=== PATIENT | male | born 1985 | race Caucasian/White ===

== ENCOUNTER 2017-02-20 20:56 | Inpatient (IN) | payer OTHER ==
--- NOTE | 2017-02-20 20:59 | PDOC ---
Rapid Medical Evaluation Time Seen by Provider: 02/20/17 20:58 Medical Evaluation: Allergies Allergy/AdvReac Type Severity Reaction Status Date / Time No Known Allergies Allergy Verified 05/05/15 22:04 02/20/17 20:58 I have performed a brief in-person evaluation of this patient. The patient presents with a chief complaint of: upper mid abd pain since yesterday Pertinent physical exam findings: epigastric [pain I have ordered the following:maloxx 300 The patient will proceed to the ED for further evaluation:
[2017-02-20] MEDS ORDERED: MAG HYDROX/AL HYDROX/SIMETH 30 ML UNIT-DOSE CUP PO ONE (21:51)
[2017-02-20] MEDS ORDERED: RANITIDINE HCL 150 MG TABLET (FP) PO ONE (21:51)
[2017-02-20] MEDS ORDERED: ONDANSETRON 4 MG TABLET PO ONE (21:51)
[2017-02-20] MEDS ORDERED: ACETAMINOPHEN 500 MG TABLET (FP) PO ONE (21:51)
--- NOTE | 2017-02-20 21:51 | PDOC ---
History of Present Illness - General Chief Complaint: Pain, Acute Stated Complaint: ABD PAIN Time Seen by Provider: 02/20/17 20:58 - History of Present Illness Initial Comments: 02/20/17 21:37 32 yo M with no significant pmh who presents with mid-abdominal pain. Pt. reports onset of sharp shooting paroxysms of abdominal pain this AM from 0000- 0500 resolved with flatus. Pain returned following PO intake of "smoothie" around 1300 with worsening, sharp, shooting pains to mid abdomen. Denies triggers or alleviators. Patient states that symtpoms may be 2/2 "large meal " yesterday. States that pain has been debilitating and severe causing him to cry. Last BM was at 1400 normal stool consistency. Denies BRBPR. Denies N/V, fevers/chills, SOB, chest pain, dysuria, hematuria. Has attempted Mylanta oral suspension with no relief. No h/o GI illness. No recent GI sick contacts. No recent travels, camping, or hiking. Past History - Past Medical History Allergies/Adverse Reactions: Allergies Allergy/AdvReac Type Severity Reaction Status Date / Time No Known Allergies Allergy Verified 02/20/17 20:58 Home Medications: Ambulatory Orders Mag Hydrox/Al Hydrox/Simeth [Mylanta *Suspension*] 30 ml PO ONCE 02/20/17 COPD: No - Immunization History Immunization Up to Date: Yes - Suicide/Smoking/Psychosocial Hx Smoking History: Never smoked Have you smoked in the past 12 months: No Hx Alcohol Use: No Drug/Substance Use Hx: No Substance Use Type: None Review of Systems - Review of Systems Comments:: 02/20/17 21:38 GENERAL/CONSTITUTIONAL: No fever or chills. No weakness. HEAD, EYES, EARS, NOSE AND THROAT: No change in vision. No ear pain or discharge. No sore throat.- CARDIOVASCULAR: No chest pain or shortness of breath RESPIRATORY: No cough, wheezing, or hemoptysis. GASTROINTESTINAL: No nausea, vomiting, diarrhea or constipation. GENITOURINARY: + abdominal pain. No dysuria, frequency, or change in urination. MUSCULOSKELETAL: No joint or muscle swelling or pain. No neck or back pain. SKIN: No rash NEUROLOGIC: No headache, vertigo, loss of consciousness, or change in strength/ sensation. ENDOCRINE: No increased thirst. No abnormal weight change HEMATOLOGIC/LYMPHATIC: No anemia, easy bleeding, or history of blood clots. ALLERGIC/IMMUNOLOGIC: No hives or skin allergy. *Physical Exam - Vital Signs Last Vital Signs Temp Pulse Resp BP Pulse Ox 97.9 F 88 16 133/97 100 02/20/17 20:59 02/20/17 20:59 02/20/17 20:59 02/20/17 20:59 02/20/17 20:59 - Physical Exam Comments: 02/20/17 21:38 GENERAL: Awake, alert, and fully oriented, in no acute distress HEAD: No signs of trauma, normocephalic, atraumatic EYES: PERRLA, EOMI, sclera anicteric, conjunctiva clear ENT: Hearing grossly normal, nares patent, oropharynx clear without exudates. Moist mucosa NECK: Normal ROM, no JVD, or masses LUNGS: No distress, speaks full sentences, clear to auscultation bilaterally HEART: Regular rate and rhythm, normal S1 and S2, no murmurs, rubs or gallops, peripheral pulses normal and equal bilaterally. ABDOMEN: Soft, nontender, normoactive bowel sounds. No guarding, no rebound. No masses EXTREMITIES : Normal inspection, Normal range of motion, no edema. No clubbing or cyanosis. SKIN: Warm, Dry, normal turgor, no rashes or lesions noted. ED Treatment Course - LABORATORY CBC & Chemistry Diagram: 02/20/17 22:23 02/20/17 22:23 Medical Decision Making - Medical Decision Making 02/20/17 21:58 32 yo M with no significant pmh who presents with acute onset of sharp shooting paroxysms of abdominal pain this AM from [id number] resolved with flatus. Pain returned following PO intake at 1300 with worsening, sharp, shooting pains to mid abdomen. Last BM at 1400 normal stool consistency. Denies BRBPR, N/V, fevers /chills,SOB, dysuria, hematuria. Has attempted Mylanta oral suspension with no relief. No h/o GI illness. No recent GI sick contacts. No recent travels, camping, or hiking. Physical exam benign and hemodyanmically stable. There is low suspicion for emergent GI pathology given benign physical exam, absent abdominal ttp, and unremarkable history with lack of symptoms or risk factors. Although, unlikely it is regional to consider early appendicitis with potential for periumbilical migration vs. cholelithaisis/choleycystitis d/t spasmodic nature of pain. Less likely PUD, Mesenteric Ischemia. ED Course: 02/20/17 22:03 CBC,CMP, Lipase, UA Toradol IM 60 mg 02/20/17 22:12 02/20/17 23:52 14.1 WBC 02/20/17 23:56 RUQ U/S: Cholelithiasis, with probable choleycystitis. Gallbladder wall thickening 0.6 cm. 02/21/17 00:18 Will admit to obs/inpatient and consult surgery. *DC/Admit/Observation/Transfer Diagnosis at time of Disposition: Acute cholecystitis Abdominal pain Qualifiers: Abdominal location: periumbilical Qualified Code(s): R10.33 - Periumbilical pain - Discharge Dispostion Disposition: HOME Condition at time of disposition: Stable Admit: No - Referrals - Patient Instructions Printed Discharge Instructions: DI for Irritable Bowel Syndrome Additional Instructions: Please return to the emergency department with any new or worsening symptoms or concerns. - Post Discharge Activity - Attestations Physician Attestion: 02/20/17 23:58 I attest to the information provided in this note.
--- NOTE | 2017-02-20 22:05 | PDOC ---
Attending Attestation - Medical Decision Making 02/21/17 01:22 12:44am Call placed to Dr. Parsons, awaiting call back. 1:05am Call returned from Dr. Cowan, associate of Dr. Parsons. Case was discussed. Documentation prepared by Caitlin Craft, acting as medical device engineer for Delio Uriarte MD. <Caitlin Craft - Last Filed: 02/21/17 01:22> - Resident Resident Name: Jose Merason - ED Attending Attestation I have performed the following: I have examined & evaluated the patient, The case was reviewed & discussed with the resident, I agree w/resident's findings & plan, Exceptions are as noted - HPI HPI: 02/20/17 22:05 32y M no pmhx prsents with abdominal pain, worse in the mid abdomen, sharp shooting, intermittent, onest around midnight last night, last meal was at 7pm, bu tpt notes he had a teaspoon of coconut oil prior to going to bed. notes that he felt much better around 5am, got some sleep. when he got up he had a smoothie and pain started again. no associated cp, radiation of pain, fever/ chills, n/v, diarrhea, dysuyria, hematuria no prior episode of similar pain in th epast pts exam is unremnarkable with a soft abdomen no rebound/guarding, neg murphies no distress suspect gall stones consider ingidgestion - pt notes he had 10 jalepenos during dinner last night will ck labs, us of gb will give toradol, gi coctail - Physicial Exam PE: 02/21/17 03:36 see above - Medical Decision Making pts US suggestive of cholecystitis pt also had wbc of 14 clinically pt does not apper to have cholecystiits pt was written for ctx case dw dr. Cowan (surgery) agrees to see pt in am for assessment chandrika dw dr. munoz agree with observation under dr. Carballo service Case discussed in detail with admitting physician including history, physical exam and ancillary studies. Admitting physician has assumed care for the patient, will follow all pending diagnostics and will complete the evaluation and treatment. <Delio Uriarte - Last Filed: 02/21/17 03:37>
[2017-02-20] MEDS ORDERED: KETOROLAC TROMETHAMINE 60 MG/2 ML VIAL IM ONE (22:11)
[2017-02-20] MEDS ORDERED: KETOROLAC TROMETHAMINE 60 MG/2 ML VIAL ONE (22:12)
[2017-02-20 23:10] LABS: ALBUMIN 4.5 g/dl (3.4-5.0); ANION GAP 8 (8-16); CO2 26 mmol/L (21-32); CREATININE 0.7 mg/dL (0.7-1.3); GLUCOSE,RANDOM 89 mg/dL (74-106); SGOT/AST 13 U/L (15-37); SGPT/ALT 31 U/L (12-78)
[2017-02-20 23:12] LABS: ALK PHOS 107 U/L (45-117); BASOPHIL 0.2 % (0-2.0); BILIRUBIN,TOTAL 0.6 mg/dL (0.2-1.0); EOSINOPHIL 0.2 % (0-4.5); MCH 27.1 pg (25.7-33.7); MEAN CELL VOLUME 79.9 fl (80-96); MEAN PLT VOLUME 10.3 fl (7.5-11.1); NEUTROPHILS 77.3 % (42.8-82.8); PLATELET COUNT 172 K/MM3 (134-434); RDW 13.1 % (11.9-15.9); TOT PROT 8.1 g/dl (6.4-8.2); WHITE BLOOD COUNT 14.1 K/mm3 (4.0-10.0)
[2017-02-21] MEDS ORDERED: CEFTRIAXONE 1 GM/50 ML BAG ONE (00:36)
[2017-02-21] MEDS ORDERED: cefTRIAXone 1 GM/50 ML BAG (PRE-DOCKED) IVPB ONE (00:45)
[2017-02-21 01:23] LABS: URINE APPEARANCE CLEAR; URINE BILIRUBIN NEGATIVE (NEGATIVE); URINE BLOOD NEGATIVE (NEGATIVE); URINE COLOR LTYELLOW; URINE GLUCOSE (UA) NEGATIVE (NEGATIVE); URINE KETONE 1+ (NEGATIVE); URINE NITRITE NEGATIVE (NEGATIVE); URINE PROTEIN NEGATIVE (NEGATIVE); URINE UROBILINOGEN NEGATIVE mg/dL (0.2-1.0)
--- NOTE | 2017-02-21 01:38 | HP ---
CHIEF COMPLAINT: abdominal pain PCP: none HISTORY OF PRESENT ILLNESS: 32 yr old man man with no significant past medical hx presented the ED for sudden intractable intermittent "bloated/pressure-like" nonradiating epigastric pain. started at 12am on Thursday, was intermittent in the beginning, 7/10 at the height, prevented him sleeping, nonpositional, no allieviating or exacerbating factors. the pain stopped at 5am and he was able to sleep. at 11am he made a smoothie with bananas, blueberries, strawberries and cashew milk, at 1pm the same abdominal pain returned but this time it was continuous and progressively worsened until he came to the ED. 1 dose of mylanta at home did not provide any relief. he also tried prune juice and water which made the abdominal pain worse. He denies any n/v/diarrhea/constipation/headache. the only new item to his diet was several slices of jalapenos pickles, store- bought. recently turned vegan in the past 2-3 months. ER course was notable for: (1) abdominal u/s (2) consult placed to Dr. Cowan - surgery (3) Recent Travel: [place] time in the last few months PAST MEDICAL HISTORY: denies medical hx, denies previous episodes of similar pain PAST SURGICAL HISTORY: denies Social History: Smoking: denies Alcohol:denies Drugs: denies Family History: maternal uncle due to colon cancer at age 66. Allergies No Known Allergies Allergy (Verified 02/20/17 20:58) HOME MEDICATIONS: Home Medications Medication Instructions Recorded Mag Hydrox/Al Hydrox/Simeth 30 ml PO ONCE 02/20/17 [Mylanta *Suspension*] REVIEW OF SYSTEMS CONSTITUTIONAL: Present: intentional weight loss 10-20lbs in past 4 months Absent: fever, chills, diaphoresis, generalized weakness, malaise, loss of appetite HEENT: Absent: rhinorrhea, nasal congestion, throat pain, throat swelling, difficulty swallowing, mouth swelling, eye pain, visual changes CARDIOVASCULAR: Absent: chest pain, syncope, palpitations, irregular heart rate, lightheadedness , peripheral edema RESPIRATORY: Absent: cough, shortness of breath, dyspnea with exertion, orthopnea, wheezing, stridor, hemoptysis GASTROINTESTINAL: Present: abdominal pain, Absent: abdominal distension, nausea, vomiting, diarrhea, constipation, melena , hematochezia GENITOURINARY: Absent: dysuria, frequency, urgency, hesitancy, hematuria, flank pain, genital pain MUSCULOSKELETAL: Absent: myalgia, arthralgia, joint swelling, back pain, neck pain SKIN: Absent: rash, itching, pallor HEMATOLOGIC/IMMUNOLOGIC: Absent: easy bleeding, easy bruising, lymphadenopathy, frequent infections ENDOCRINE: Absent: unexplained weight gain, unexplained weight loss, heat intolerance, cold intolerance NEUROLOGIC: Absent: headache, focal weakness or paresthesias, dizziness, unsteady gait, seizure, mental status changes, bladder or bowel incontinence PHYSICAL EXAMINATION Vital Signs - 24 hr 02/20/17 20:59 Temperature 97.9 F Pulse Rate 88 Respiratory 16 Rate Blood Pressure 133/97 O2 Sat by Pulse 100 Oximetry (%) GENERAL: Awake, alert, and fully oriented, in no acute distress. HEAD: Normal with no signs of trauma. EYES: Pupils equal, round and reactive to light, extraocular movements intact, sclera anicteric, conjunctiva clear. No lid lag. EARS, NOSE, THROAT: Ears normal, nares patent, oropharynx clear without exudates. Moist mucous membranes. NECK: Normal range of motion, supple without lymphadenopathy, JVD, or masses. LUNGS: Breath sounds equal, clear to auscultation bilaterally. No wheezes, and no crackles. No accessory muscle use. HEART: Regular rate and rhythm, normal S1 and S2 without murmur, rub or gallop. ABDOMEN: Soft, nontender, not distended, normoactive bowel sounds, no guarding, no rebound, no masses. No hepatomegaly or splenomegaly. MUSCULOSKELETAL: Normal range of motion at all joints. No bony deformities or tenderness. No CVA tenderness. UPPER EXTREMITIES: 2+ radial pulses, warm, well-perfused. No cyanosis. No clubbing. No peripheral edema. LOWER EXTREMITIES: 2+ dp pulses, warm, well-perfused. No calf tenderness. No peripheral edema. NEUROLOGICAL: Cranial nerves II-XII intact. Normal speech. Normal gait. 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 Good eye contact. Appropriate mood and affect. SKIN: Warm, dry, normal turgor, no rashes or lesions noted, normal capillary refill. Laboratory Results - last 24 hr 02/20/17 02/20/1717 22:23 22:23 22:23 WBC 14.1 H D RBC 5.44 D Hgb 14.8 D Hct 43.5 D MCV 79.9 L MCH 27.1 MCHC 34.0 RDW 13.1 Plt Count 172 MPV 10.3 D Neutrophils % 77.3 D Lymphocytes % 15.1 D Monocytes % 7.2 Eosinophils % 0.2 Basophils % 0.2 Sodium 137 Potassium 3.6 Chloride 103 D Carbon Dioxide 26 Anion Gap 8 BUN 4 L D Creatinine 0.7 D Creat Clearance w eGFR > 60 Random Glucose 89 Calcium 9.0 Total Bilirubin 0.6 D AST 13 L D ALT 31 D Alkaline Phosphatase 107 D Total Protein 8.1 Albumin 4.5 Lipase 83 Urine Color Urine Appearance Urine pH Ur Specific [place] Urine Protein Urine Glucose (UA) Urine Ketones Urine Blood Urine Nitrite Urine Bilirubin Urine Urobilinogen 02/21/17 00:47 WBC RBC Hgb Hct MCV MCH MCHC RDW Plt Count MPV Neutrophils % Lymphocytes % Monocytes % Eosinophils % Basophils % Sodium Potassium Chloride Carbon Dioxide Anion Gap BUN Creatinine Creat Clearance w eGFR Random Glucose Calcium Total Bilirubin AST ALT Alkaline Phosphatase Total Protein Albumin Lipase Urine Color Ltyellow Urine Appearance Clear Urine pH 7.0 D Ur Specific [place] 1.008 Urine Protein Negative Urine Glucose (UA) Negative Urine Ketones 1+ H Urine Blood Negative Urine Nitrite Negative Urine Bilirubin Negative Urine Urobilinogen Negative ASSESSMENT/PLAN: 32 yr old man with no significant pmhx presents with abdominal found to have possible acute cholecystitis on u/s placed on observation for further evaluation. #Abdominal pain - could be from passing gallstones see on u/s, although barnes' s sign negative, and he has a benign abdominal exam - consulted for surgical evaluation - repeat labs in the am #Leucocytosis - 1 dose of rocephin given in ICU, 1gm rocephin in the AM today - repeat labs #Diet: advance as tolerated #dvt: low risk, anticipate short stay #Dispo: will need referral for outpatient PCP and likely GI f/u if not further intervention is required Visit type - Emergency Visit Emergency Visit: Yes ED Registration Date: 02/21/17 Care time: The patient presented to the Emergency Department on the above date and was hospitalized for further evaluation of their emergent condition. - New Patient This patient is new to me today: Yes Date on this admission: 02/21/17 - Critical Care Critical Care patient: No
[2017-02-21] MEDS ORDERED: SODIUM CHLORIDE 1,000 ML IV SCH (01:45)
[2017-02-21 03:00] VITALS: BMI 23.0
--- NOTE | 2017-02-21 03:27 | CONSULT ---
Consult Consult Specialty:: general surgery Referred by:: Fernandez Mera - ED Reason for Consultation:: Abdominal Pain - History of Present Illness Chief Complaint: abdominal pain History of Present Illness: 32 yo male no dignificnat PMH or PSH presented to the ED complaining of abdominal pain, worse in the mid abdomen, sharp shooting, intermittent, onest around midnight last night, last meal was at 7pm. the pain was closely related to meal time. His previous diet was poor including fast food and saturated fat. He recently changed and in a effort improve had a teaspoon of coconut oil prior to going to bed. He has been a vegan for 4 months. notes that he felt much better around 5am, got some sleep. Later in the day he had a smoothie and pain started again. he denies nausea and vomiting. we were asked to assess for surgery. - History Source History Provided By: Patient Limitations to Obtaining History: No Limitations - Alcohol/Substance Use Hx Alcohol Use: No - Smoking History Smoking history: Never smoked Have you smoked in the past 12 months: No - Social History Place of : [facility] History of Recent Travel: No Home Medications - Allergies Allergies/Adverse Reactions: Allergies Allergy/AdvReac Type Severity Reaction Status Date / Time No Known Allergies Allergy Verified 02/20/17 20:58 - Home Medications Home Medications: Ambulatory Orders Mag Hydrox/Al Hydrox/Simeth [Mylanta *Suspension*] 30 ml PO ONCE 02/20/17 Review of Systems - Review of Systems Constitutional: denies: Chills, Fever Eyes: denies: Blurred Vision, Recent Change in Vision Cardiovascular: denies: Chest Pain, Palpitations Respiratory: denies: Cough, SOB Gastrointestinal: reports: Abdominal Pain, Bloating Musculoskeletal: denies: Joint Pain, Joint Swelling Integumentary: denies: Lesions, Rash Neurological: denies: Confusion, Syncope Endocrine: denies: Unexplained Weight Gain, Unexplained Weight Loss Hematology/Lymphatic: denies: Easily Bruised, Excessive Bleeding Psychiatric: denies: Anxiety, Depression Physical Exam Vital Signs: Vital Signs Temperature 97.8 F 02/21/17 00:50 Pulse Rate 59 L 02/21/17 00:50 Respiratory Rate 20 02/21/17 03:14 Blood Pressure 120/72 02/21/17 00:50 O2 Sat by Pulse Oximetry (%) 100 02/20/17 20:59 Vital Signs Period Temp Pulse Resp BP Sys/Sky Pulse Ox Last 24 Hr 97.8 F-98.0 F 59-88 16-20 109-133/63-97 100 Constitutional: Yes: Well Nourished, No Distress, Calm Eyes: Yes: Conjunctiva Clear, EOM Intact HENT: Yes: Atraumatic, Normocephalic Neck: Yes: Supple, Trachea Midline Cardiovascular: Yes: Regular Rate and Rhythm, S1, S2. No: Murmur Respiratory: Yes: Regular, CTA Bilaterally Gastrointestinal: Yes: Normal Bowel Sounds, Soft, Tenderness (minimal right upper quadrant). No: Ascites, Distention, Hepatomegaly, Tenderness, Rebound ...Rectal Exam: Yes: Deferred Renal/: No: CVA Tenderness - Left, CVA Tenderness - Right Extremities: No: Cool, Cyanosis Edema: No Peripheral Pulses WNL: Yes Neurological: Yes: Alert, Oriented Psychiatric: Yes: Alert, Oriented Labs: CBC, BMP 02/20/17 22:23 02/20/17 22:23 Repeat CBC,CMP WBC 9.1 K/mm3 (4.0-10.0) D 02/21/17 06:00 RBC 4.91 M/mm3 (4.00-5.60) 02/21/17 06:00 Hgb 13.1 GM/dL (11.7-16.9) D 02/21/17 06:00 Hct 39.4 % (35.4-49) 02/21/17 06:00 MCV 80.3 fl (80-96) 02/21/17 06:00 MCH 26.7 pg (25.7-33.7) 02/21/17 06:00 MCHC 33.3 g/dl (32.0-35.9) 02/21/17 06:00 RDW 12.9 % (11.9-15.9) 02/21/17 06:00 Plt Count 151 K/MM3 (134-434) 02/21/17 06:00 MPV 10.1 fl (7.5-11.1) 02/21/17 06:00 Neutrophils % 49.2 % (42.8-82.8) D 02/21/17 06:00 Lymphocytes % 37.4 % (8-40) D 02/21/17 06:00 Monocytes % 11.9 % (3.8-10.2) H 02/21/17 06:00 Eosinophils % 1.0 % (0-4.5) D 02/21/17 06:00 Basophils % 0.5 % (0-2.0) 02/21/17 06:00 Sodium 137 mmol/L (136-145) 02/20/17 22:23 Potassium 3.6 mmol/L (3.5-5.1) 02/20/17 22:23 Chloride 103 mmol/L (98-107) D 02/20/17 22:23 Carbon Dioxide 26 mmol/L (21-32) 02/20/17 22:23 Anion Gap 8 (8-16) 02/20/17 22:23 BUN 4 mg/dL (7-18) L D 02/20/17 22:23 Creatinine 0.7 mg/dL (0.7-1.3) D 02/20/17 22:23 Creat Clearance w eGFR > 60 (>60) 02/20/17 22:23 Random Glucose 89 mg/dL (74-106) 02/20/17 22:23 Calcium 9.0 mg/dL (8.5-10.1) 02/20/17 22:23 Total Bilirubin 0.6 mg/dL (0.2-1.0) D 02/20/17 22:23 AST 13 U/L (15-37) L D 02/20/17 22:23 ALT 31 U/L (12-78) D 02/20/17 22:23 Alkaline Phosphatase 107 U/L (45-117) D 02/20/17 22:23 Total Protein 8.1 g/dl (6.4-8.2) 02/20/17 22:23 Albumin 4.5 g/dl (3.4-5.0) 02/20/17 22:23 Lipase 83 U/L (73-393) 02/20/17 22:23 Imaging - Results Ultrasound: Image Reviewed (cholelithiasis with milid GB wall thickening) Problem List - Problems (1) Cholelithiasis and cholecystitis without obstruction Assessment/Plan: 32 yo male with no significant PMH presented with Acute cholecystitis/ symptomatic cholelithiasis NPO and IVF hydration empiric IV antibiotics had a long conversation recommending surgery however the patient prefers to be treated non-operatively consider gradually refeeding tonight for dinner with clears he was counseled regarding diet and provided with contact information should his mind change Thank you for the opportunity to participate in the care of this patient. Code(s): K80.10 - CALCULUS OF GALLBLADDER W CHRONIC CHOLECYST W/O OBSTRUCTION Qualifiers: Cholelithiasis location: gallbladder Cholecystitis acuity: acute Qualified Code(s): K80.00 - Calculus of gallbladder with acute cholecystitis without obstruction (2) Abdominal pain Code(s): R10.9 - UNSPECIFIED ABDOMINAL PAIN Qualifiers: Abdominal location: right upper quadrant Qualified Code(s): R10.11 - Right upper quadrant pain (3) Acute cholecystitis Code(s): K81.0 - ACUTE CHOLECYSTITIS (4) Diarrhea Code(s): R19.7 - DIARRHEA, UNSPECIFIED
[2017-02-21] MEDS: LACTATED RINGERS SOLUTION 1,000 ML/1,000 ML INFUS.BAG IV SCH ×2 (04:30→17:32)
--- NOTE | 2017-02-21 06:32 | PN ---
Teaching Attending Note Name of Resident: Felisa Lr ATTENDING PHYSICIAN STATEMENT I saw and evaluated the patient. I reviewed the resident's note and discussed the case with the resident. I agree with the resident's findings and plan as documented. SUBJECTIVE: OBJECTIVE: ASSESSMENT AND PLAN: this is a 32 y/o male patient without any PMH presented to the ER with abdominal pain and regurgitation, patient was found to have inflammation within the gallbladder patient is admitted for the management of pain, for choledolithiaisis vs acute cholecystitis start the patient on broad spectrum antibiots surgery evaluation IVF hydration keep patient NPO pain managment
[2017-02-21] MEDS ORDERED: CEFTRIAXONE 1 G/50 ML PREMIX 50 ML IVPB ONE (06:39)
[2017-02-21 07:23] LABS: BASOPHIL 0.5 % (0-2.0); MCH 26.7 pg (25.7-33.7); MCHC 33.3 g/dl (32.0-35.9); MEAN CELL VOLUME 80.3 fl (80-96); MEAN PLT VOLUME 10.1 fl (7.5-11.1); NEUTROPHILS 49.2 % (42.8-82.8); PLATELET COUNT 151 K/MM3 (134-434); RDW 12.9 % (11.9-15.9); WHITE BLOOD COUNT 9.1 K/mm3 (4.0-10.0)
[2017-02-21] MEDS: METRONIDAZOLE 500 MG PREMIXED 500 MG/100 ML MG IVPB SCH ×2 (08:22→17:32)
[2017-02-21 09:06] LABS: ALBUMIN 3.5 g/dl (3.4-5.0); ALK PHOS 93 U/L (45-117); ANION GAP 8 (8-16); CALCIUM 8.2 mg/dL (8.5-10.1); CO2 25 mmol/L (21-32); CREATININE 0.6 mg/dL (0.7-1.3); GLUCOSE,RANDOM 82 mg/dL (74-106); SGOT/AST 13 U/L (15-37); SGPT/ALT 25 U/L (12-78); TOT PROT 6.4 g/dl (6.4-8.2)
--- NOTE | 2017-02-21 09:19 | HOSP ---
Physical Examination Vital Signs: Vital Signs Temperature 98.0 F 02/21/17 07:25 Pulse Rate 64 02/21/17 07:25 Respiratory Rate 20 02/21/17 07:25 Blood Pressure 109/63 02/21/17 07:25 O2 Sat by Pulse Oximetry (%) 100 02/20/17 20:59 Findings/Remarks: Subjective: The patient was seen and examined at the bedside, he states he is feeling better today and denies any abdominal pain. Evaluated by surgery, patient is refusing at this time Remains NPO Current Medications Generic Name Dose Route Start Last Admin Trade Name Freq PRN Reason Stop Dose Admin Lactated Ringer's 1,000 ml in 1,000 mls @ 100 mls/hr 02/21/17 03:45 02/21/17 04:30 Lactated Ringers Solution IV 100 mls/hr ASDIR NUNU Administration Metronidazole 500 mg in 100 mls @ 100 mls/hr 02/21/17 08:00 02/21/17 08:22 Flagyl 500mg Premixed Ivpb - IVPB 100 mls/hr Q8H-IV NUNU Administration Objective: Vital Signs Period Temp Pulse Resp BP Sys/Sky Pulse Ox Last 24 Hr 97.8 F-98.0 F 59-88 16-20 109-133/63-97 100 Physical Exam: General: NAD, A&Ox3 Lungs: CTA bilaterally Heart: RRR, S1S2 Abd: Soft, non-tender, non-distended. Normoactive bowel sounds Ext: Warm, well-perfused. 2+ DP/PT bilaterally Neuro: CN 2-12 intact CBCD WBC 9.1 K/mm3 (4.0-10.0) D 02/21/17 06:00 RBC 4.91 M/mm3 (4.00-5.60) 02/21/17 06:00 Hgb 13.1 GM/dL (11.7-16.9) D 02/21/17 06:00 Hct 39.4 % (35.4-49) 02/21/17 06:00 MCV 80.3 fl (80-96) 02/21/17 06:00 MCHC 33.3 g/dl (32.0-35.9) 02/21/17 06:00 RDW 12.9 % (11.9-15.9) 02/21/17 06:00 Plt Count 151 K/MM3 (134-434) 02/21/17 06:00 MPV 10.1 fl (7.5-11.1) 02/21/17 06:00 CMP Sodium 137 mmol/L (136-145) 02/20/17 22:23 Potassium 3.6 mmol/L (3.5-5.1) 02/20/17 22:23 Chloride 103 mmol/L (98-107) D 02/20/17 22:23 Carbon Dioxide 26 mmol/L (21-32) 02/20/17 22:23 Anion Gap 8 (8-16) 02/20/17 22:23 BUN 4 mg/dL (7-18) L D 02/20/17 22:23 Creatinine 0.7 mg/dL (0.7-1.3) D 02/20/17 22:23 Creat Clearance w eGFR > 60 (>60) 02/20/17 22:23 Random Glucose 89 mg/dL (74-106) 02/20/17 22:23 Calcium 9.0 mg/dL (8.5-10.1) 02/20/17 22:23 Total Bilirubin 0.6 mg/dL (0.2-1.0) D 02/20/17 22:23 AST 13 U/L (15-37) L D 02/20/17 22:23 ALT 31 U/L (12-78) D 02/20/17 22:23 Alkaline Phosphatase 107 U/L (45-117) D 02/20/17 22:23 Total Protein 8.1 g/dl (6.4-8.2) 02/20/17 22:23 Albumin 4.5 g/dl (3.4-5.0) 02/20/17 22:23 Assessment: This is a 32 year old male with no significant PMHx who presented to the ED with abdominal pain and was found to have cholelithiasis with acute cholecystitis Plan: 1) GI: Acute cholecystitis with cholelithiasis - NPO - IVF - Continue empiric Ceftriaxone and Flagyl - Patient refusing surgery at this time - Possibly start on clears tonight per surgery - Appreciate surgical consult 2) F/E/N: - Monitor electroytes - NPO, advance per surgery 3) Prophylaxis: - OOB ambulating - Heparin 5,000u sq tid 4) Dispo: - Requires continued inpatient care CODE STATUS: FULL CODE Labs: CBC, BMP 02/21/17 06:00
[2017-02-21] MEDS: HEPARIN NA (PORCINE) 5,000 UNITS/ML 1ML VIAL SQ SCH ×3 (11:06→21:28)
[2017-02-21 11:59] LABS: URINE LEUK ESTERASE Negative (NEGATIVE)
--- NOTE | 2017-02-21 12:12 | PN ---
Progress Note (short form) - Note Progress Note: This is likely biliary colic and because he feels much improved we can start clears as tolerated. Problem List - Problems (1) Cholelithiasis and cholecystitis without obstruction Code(s): K80.10 - CALCULUS OF GALLBLADDER W CHRONIC CHOLECYST W/O OBSTRUCTION Qualifiers: Cholelithiasis location: gallbladder Cholecystitis acuity: acute Qualified Code(s): K80.00 - Calculus of gallbladder with acute cholecystitis without obstruction (2) Abdominal pain Code(s): R10.9 - UNSPECIFIED ABDOMINAL PAIN Qualifiers: Abdominal location: right upper quadrant Qualified Code(s): R10.11 - Right upper quadrant pain (3) Acute cholecystitis Code(s): K81.0 - ACUTE CHOLECYSTITIS (4) Diarrhea Code(s): R19.7 - DIARRHEA, UNSPECIFIED
[2017-02-22] MEDS: METRONIDAZOLE 500 MG PREMIXED 500 MG/100 ML MG IVPB SCH ×3 (01:48→17:41)
[2017-02-22] MEDS: LACTATED RINGERS SOLUTION 1,000 ML/1,000 ML INFUS.BAG IV SCH ×2 (04:49→17:42)
[2017-02-22] MEDS: HEPARIN NA (PORCINE) 5,000 UNITS/ML 1ML VIAL SQ SCH ×3 (05:11→21:17)
[2017-02-22 07:47] LABS: MCH 27.2 pg (25.7-33.7); MCHC 33.7 g/dl (32.0-35.9); MEAN CELL VOLUME 80.5 fl (80-96); PLATELET COUNT 153 K/MM3 (134-434); RDW 13.2 % (11.9-15.9); WHITE BLOOD COUNT 10.5 K/mm3 (4.0-10.0)
[2017-02-22 08:42] LABS: ALBUMIN 3.6 g/dl (3.4-5.0); ALK PHOS 96 U/L (45-117); ANION GAP 7 (8-16); CALCIUM 8.5 mg/dL (8.5-10.1); CO2 26 mmol/L (21-32); CREATININE 0.7 mg/dL (0.7-1.3); GLUCOSE,RANDOM 91 mg/dL (74-106); SGOT/AST 12 U/L (15-37); SGPT/ALT 25 U/L (12-78); TOT PROT 6.6 g/dl (6.4-8.2)
[2017-02-22] MEDS: CEFTRIAXONE 1 G/50 ML PREMIX 50 ML IVPB SCH (09:54)
[2017-02-22] MEDS ORDERED: LEVOFLOXACIN 500 MG IVPB 500 MG/100 ML BAG IVPB SCH (10:00)
--- NOTE | 2017-02-22 10:00 | PN ---
Progress Note (short form) - Note Progress Note: Subjective: The patient was seen and examined at the bedside, he states he is hungry and would like to eat more than clear liquids He reports two episodes of loose stool yesterday afternoon No abdominal pain or nausea with clear liquid diet, will advance to full liquid at lunch Current Medications Generic Name Dose Route Start Last Admin Trade Name Hemal PRN Reason Stop Dose Admin Heparin Sodium (Porcine) 5,000 unit 02/21/17 09:45 02/22/17 05:11 Heparin - SQ Not Given TID NUNU Lactated Ringer's 1,000 ml in 1,000 mls @ 100 mls/hr 02/21/17 03:45 02/22/17 04:49 Lactated Ringers Solution IV 100 mls/hr ASDIR NUNU Administration Metronidazole 500 mg in 100 mls @ 100 mls/hr 02/21/17 08:00 02/22/17 01:48 Flagyl 500mg Premixed Ivpb - IVPB 100 mls/hr Q8H-IV NUNU Administration CEFTRIAXONE 1 G/50 ML PREMIX 50 mls @ 100 mls/hr 02/22/17 10:00 02/22/17 09: 54 Ceftriaxone 1 Gm-D5w Bag IVPB 100 mls/hr DAILY NUNU Administration Objective: Vital Signs Period Temp Pulse Resp BP Sys/Sky Pulse Ox Last 24 Hr 97.9 F-98.2 F 57-62 20-20 110-121/62-86 96-97 Physical Exam: General: NAD, A&Ox3 Lungs: CTA bilaterally Heart: RRR, S1S2 Abd: Soft, non-tender, non-distended. Normoactive bowel sounds Ext: Warm, well-perfused. 2+ DP/PT bilaterally Neuro: CN 2-12 intact CBCD WBC 10.5 K/mm3 (4.0-10.0) H 02/22/17 06:20 RBC 4.89 M/mm3 (4.00-5.60) 02/22/17 06:20 Hgb 13.3 GM/dL (11.7-16.9) 02/22/17 06:20 Hct 39.4 % (35.4-49) 02/22/17 06:20 MCV 80.5 fl (80-96) 02/22/17 06:20 MCHC 33.7 g/dl (32.0-35.9) 02/22/17 06:20 RDW 13.2 % (11.9-15.9) 02/22/17 06:20 Plt Count 153 K/MM3 (134-434) 02/22/17 06:20 MPV 10.0 fl (7.5-11.1) 02/22/17 06:20 CMP Sodium 140 mmol/L (136-145) 02/22/17 06:20 Potassium 3.7 mmol/L (3.5-5.1) 02/22/17 06:20 Chloride 107 mmol/L (98-107) 02/22/17 06:20 Carbon Dioxide 26 mmol/L (21-32) 02/22/17 06:20 Anion Gap 7 (8-16) L 02/22/17 06:20 BUN 5 mg/dL (7-18) L D 02/22/17 06:20 Creatinine 0.7 mg/dL (0.7-1.3) 02/22/17 06:20 Creat Clearance w eGFR > 60 (>60) 02/22/17 06:20 Random Glucose 91 mg/dL (74-106) 02/22/17 06:20 Calcium 8.5 mg/dL (8.5-10.1) 02/22/17 06:20 Total Bilirubin 1.0 mg/dL (0.2-1.0) 02/22/17 06:20 AST 12 U/L (15-37) L 02/22/17 06:20 ALT 25 U/L (12-78) 02/22/17 06:20 Alkaline Phosphatase 96 U/L (45-117) 02/22/17 06:20 Total Protein 6.6 g/dl (6.4-8.2) 02/22/17 06:20 Albumin 3.6 g/dl (3.4-5.0) 02/22/17 06:20 Assessment: This is a 32 year old male with no significant PMHx who presented to the ED with abdominal pain and was found to have cholelithiasis with acute cholecystitis Plan: 1) GI: Acute cholecystitis with cholelithiasis - Tolerated clear liquid diet, advance to full liquid for lunch - IVF, will discontinued - Continue empiric Ceftriaxone and Flagyl - Patient refusing surgery at this time - Appreciate surgical consult 2) F/E/N: - Monitor electroytes - Full liquid diet for lunch, advance as tolerated 3) Prophylaxis: - OOB ambulating - Heparin 5,000u sq tid 4) Dispo: - Requires continued inpatient care CODE STATUS: FULL CODE Visit type - Emergency Visit Emergency Visit: Yes ED Registration Date: 02/21/17 Care time: The patient presented to the Emergency Department on the above date and was hospitalized for further evaluation of their emergent condition. - New Patient This patient is new to me today: No - Critical Care Critical Care patient: No
--- NOTE | 2017-02-22 12:11 | PN ---
Progress Note (short form) - Note Progress Note: Patient was seen and examined this morning, his mother was present at the bedside. This is likely biliary colic and because he feels much improved he is note interested in surgery at this time. His diet can be advanced to vegan regular, if tolerating he can be discharged at the discretion of the primary team. He has been provided with information to follow-up for elective cholecystectomy should he change his mind Problem List - Problems (1) Cholelithiasis and cholecystitis without obstruction Code(s): K80.10 - CALCULUS OF GALLBLADDER W CHRONIC CHOLECYST W/O OBSTRUCTION Qualifiers: Cholelithiasis location: gallbladder Cholecystitis acuity: acute Qualified Code(s): K80.00 - Calculus of gallbladder with acute cholecystitis without obstruction (2) Abdominal pain Code(s): R10.9 - UNSPECIFIED ABDOMINAL PAIN Qualifiers: Abdominal location: right upper quadrant Qualified Code(s): R10.11 - Right upper quadrant pain (3) Acute cholecystitis Code(s): K81.0 - ACUTE CHOLECYSTITIS (4) Diarrhea Code(s): R19.7 - DIARRHEA, UNSPECIFIED
[2017-02-22] MEDS ORDERED: ONDANSETRON 4 MG/2 ML VIAL IVPUSH ONE (20:15)
[2017-02-22] MEDS: ACETAMINOPHEN 325 MG TABLET (FP) PO PRN (20:31)
[2017-02-22 21:07] LABS: BASOPHIL 1.4 % (0-2.0); MCH 27.4 pg (25.7-33.7); MCHC 34.4 g/dl (32.0-35.9); MEAN CELL VOLUME 79.6 fl (80-96); MEAN PLT VOLUME 9.7 fl (7.5-11.1); NEUTROPHILS 90.3 % (42.8-82.8); PLATELET COUNT 158 K/MM3 (134-434); RDW 12.6 % (11.9-15.9); WHITE BLOOD COUNT 10.1 K/mm3 (4.0-10.0)
[2017-02-23] MEDS: METRONIDAZOLE 500 MG PREMIXED 500 MG/100 ML MG IVPB SCH ×3 (02:46→18:37)
[2017-02-23] MEDS: LACTATED RINGERS SOLUTION 1,000 ML/1,000 ML INFUS.BAG IV SCH ×2 (02:47→15:45)
[2017-02-23] MEDS: HEPARIN NA (PORCINE) 5,000 UNITS/ML 1ML VIAL SQ SCH ×3 (05:52→21:14)
[2017-02-23 07:40] LABS: MCH 26.7 pg (25.7-33.7); MCHC 33.1 g/dl (32.0-35.9); MEAN CELL VOLUME 80.6 fl (80-96); MEAN PLT VOLUME 9.5 fl (7.5-11.1); PLATELET COUNT 129 K/MM3 (134-434); RDW 12.6 % (11.9-15.9)
--- NOTE | 2017-02-23 09:01 | PN ---
Progress Note, Physician Chief Complaint: abdominal pain History of Present Illness: 32 yo male no dignificnat PMH or PSH presented to the ED complaining of abdominal pain, worse in the mid abdomen, sharp shooting, intermittent, onest around midnight last night, last meal was at 7pm. the pain was closely related to meal time. His previous diet was poor including fast food and saturated fat. He recently changed and in a effort improve had a teaspoon of coconut oil prior to going to bed. He has been a vegan for 4 months. notes that he felt much better around 5am, got some sleep. Later in the day he had a smoothie and pain started again. he denies nausea and vomiting. we were asked to assess for surgery. - Current Medication List Current Medications: Active Medications Acetaminophen (Tylenol -) 650 mg PO Q6H PRN PRN Reason: FEVER OR PAIN Last Admin: 02/22/17 20:31 Dose: 650 mg Heparin Sodium (Porcine) (Heparin -) 5,000 unit SQ TID [facility] Last Admin: 02/23/17 05:52 Dose: Not Given Lactated Ringer's (Lactated Ringers Solution) 1,000 ml in 1,000 mls @ 100 mls/ hr IV ASDIR [facility] Last Admin: 02/23/17 02:47 Dose: 100 mls/hr Metronidazole (Flagyl 500mg Premixed Ivpb -) 500 mg in 100 mls @ 100 mls/hr IVPB Q8H-IV [facility] Last Admin: 02/23/17 02:46 Dose: 100 mls/hr CEFTRIAXONE 1 G/50 ML PREMIX (Ceftriaxone 1 Gm-D5w Bag) 50 mls @ 100 mls/hr IVPB DAILY [facility] Last Admin: 02/22/17 09:54 Dose: 100 mls/hr - Objective Vital Signs: Vital Signs Temperature 99.2 F 02/23/17 08:00 Pulse Rate 82 02/23/17 08:00 Respiratory Rate 18 02/23/17 08:00 Blood Pressure 117/64 02/23/17 08:00 O2 Sat by Pulse Oximetry (%) 98 02/22/17 22:00 Vital Signs Period Temp Pulse Resp BP Sys/Sky Pulse Ox Last 24 Hr 98.2 F-100.6 F 82-105 18-20 103-134/60-81 98 Constitutional: Yes: Well Nourished, No Distress, Calm Eyes: Yes: Conjunctiva Clear, EOM Intact HENT: Yes: Atraumatic, Normocephalic Neck: Yes: Supple, Trachea Midline Cardiovascular: Yes: Regular Rate and Rhythm, S1, S2 Respiratory: Yes: Regular, CTA Bilaterally Gastrointestinal: Yes: Normal Bowel Sounds, Soft, Pulsatile Mass. No: Tenderness, Tenderness, Epigastrium, Tenderness, Rebound ...Rectal Exam: Yes: Deferred Genitourinary: No: CVA Tenderness - Left, CVA Tenderness - Right Musculoskeletal: Yes: Muscle Weakness. No: Muscle Pain Extremities: No: Cool, Cyanosis Edema: No Peripheral Pulses WNL: Yes Peripheral Pulses: Left Doralis Pedis: 2+, Right Dorsalis Pedis: 2+ Neurological: Yes: Alert, Oriented Psychiatric: Yes: Alert, Oriented Labs: CBC, BMP 02/23/17 06:45 02/22/17 06:20 Problem List - Problems (1) Cholelithiasis and cholecystitis without obstruction Assessment/Plan: 32 yo male with no significant PMH presented with Acute cholecystitis/ symptomatic cholelithiasis, Again he was offered surgery and refused. He has low grade fevers Tmax 100.6, He has an elevated WBC 14 this morning. He is explained that he needs surgery to improve his condition. NPO and IVF hydration empiric IV antibiotics Had a long conversation recommending surgery however the patient prefers to be treated non-operatively - against medical advice from was presented. Thank you for the opportunity to participate in the care of this patient. Code(s): K80.10 - CALCULUS OF GALLBLADDER W CHRONIC CHOLECYST W/O OBSTRUCTION Qualifiers: Cholelithiasis location: gallbladder Cholecystitis acuity: acute Qualified Code(s): K80.00 - Calculus of gallbladder with acute cholecystitis without obstruction (2) Abdominal pain Code(s): R10.9 - UNSPECIFIED ABDOMINAL PAIN Qualifiers: Abdominal location: right upper quadrant Qualified Code(s): R10.11 - Right upper quadrant pain (3) Acute cholecystitis Code(s): K81.0 - ACUTE CHOLECYSTITIS (4) Diarrhea Code(s): R19.7 - DIARRHEA, UNSPECIFIED
[2017-02-23] MEDS: CEFTRIAXONE 1 G/50 ML PREMIX 50 ML IVPB SCH (09:08)
[2017-02-23] MEDS: ACETAMINOPHEN 325 MG TABLET (FP) PO PRN (14:19)
--- NOTE | 2017-02-23 19:13 | PN ---
Physical Exam: SUBJECTIVE: Patient seen and examined. Sister and girlfriend at bedside. Lengthy discussion with them about patient's condition. They had many questions , all of which were answered. Laboratory and imaging data were shared. Patient now agrees to surgery. OBJECTIVE: Vital Signs Period Temp Pulse Resp BP Sys/Sky Pulse Ox Last 24 Hr 99.2 F-100.8 F 82-105 18-20 103-151/64-75 98-98 GENERAL: The patient is awake, alert, and fully oriented, in no acute distress. LUNGS: Breath sounds equal, clear to auscultation bilaterally, no wheezes, no crackles, no accessory muscle use. HEART: Regular rate and rhythm, S1, S2 without murmur, rub or gallop. ABDOMEN: Soft, nontender, nondistended, normoactive bowel sounds, no guarding, no rebound EXTREMITIES: 2+ pulses, warm, well-perfused, no edema. NEUROLOGICAL: Cranial nerves II through XII grossly intact. Normal speech, steady gait. Laboratory Results - last 24 hr 02/22/17 02/23/17 20:40 06:45 WBC 10.1 H 14.0 H D RBC 4.79 4.66 Hgb 13.1 12.4 Hct 38.2 37.6 MCV 79.6 L 80.6 MCH 27.4 26.7 MCHC 34.4 33.1 RDW 12.6 12.6 Plt Count 158 129 L MPV 9.7 9.5 Neutrophils % 90.3 H D Lymphocytes % 6.5 L D Monocytes % 1.8 L D Eosinophils % 0.0 D Basophils % 1.4 Manual Slide Review No Result Required. Active Medications Generic Name Dose Route Start Last Admin Trade Name Freq PRN Reason Stop Dose Admin Acetaminophen 650 mg 02/22/17 20:11 02/23/17 14:19 Tylenol - PO 650 mg Q6H PRN Administration FEVER OR PAIN Heparin Sodium (Porcine) 5,000 unit 02/21/17 09:45 02/23/17 14:24 Heparin - SQ Not Given TID NUNU Lactated Ringer's 1,000 ml in 1,000 mls @ 100 mls/hr 02/21/17 03:45 02/23/17 15:45 Lactated Ringers Solution IV 100 mls/hr ASDIR NUUN Administration Metronidazole 500 mg in 100 mls @ 100 mls/hr 02/21/17 08:00 02/23/17 18:37 Flagyl 500mg Premixed Ivpb - IVPB 100 mls/hr Q8H-IV NUNU Administration CEFTRIAXONE 1 G/50 ML PREMIX 50 mls @ 100 mls/hr 02/22/17 10:00 02/23/17 09: 08 Ceftriaxone 1 Gm-D5w Bag IVPB 100 mls/hr DAILY NUNU Administration ASSESSMENT/PLAN 32 year-old male with no significant PMH admitted for acute cholecystitis. Acute cholecystitis Cholelithiasis --has agreed to surgery, Dr. Cowan advised --keep NPO after midnight --continue empiric ceftriaxone and metronidazole FEN Fluids: LR @ 100mL/hr Electrolytes: replete as indicated Nutrition: regular diet, NPO after midnight DVT prophylaxis: subq heparin, oob, ambulation Dispo: continues to require inpatient care. Full code. Visit type - Emergency Visit Emergency Visit: Yes ED Registration Date: 02/21/17 Care time: The patient presented to the Emergency Department on the above date and was hospitalized for further evaluation of their emergent condition. - New Patient This patient is new to me today: Yes Date on this admission: 02/24/17 - Critical Care Critical Care patient: No
[2017-02-24] MEDS: METRONIDAZOLE 500 MG PREMIXED 500 MG/100 ML MG IVPB SCH ×3 (01:09→18:06)
[2017-02-24] MEDS: LACTATED RINGERS SOLUTION 1,000 ML/1,000 ML INFUS.BAG IV SCH (01:09)
[2017-02-24] MEDS ORDERED: LACTATED RINGERS SOLUTION 1,000 ML/1,000 ML INFUS.BAG IV SCH (03:00)
[2017-02-24] MEDS: HEPARIN NA (PORCINE) 5,000 UNITS/ML 1ML VIAL SQ SCH (05:50)
[2017-02-24 08:10] LABS: ALBUMIN 3.6 g/dl (3.4-5.0); ALK PHOS 87 U/L (45-117); ANION GAP 10 (8-16); BILIRUBIN,TOTAL 0.4 mg/dL (0.2-1.0); CALCIUM 8.1 mg/dL (8.5-10.1); CO2 26 mmol/L (21-32); CREATININE 0.7 mg/dL (0.7-1.3); GLUCOSE,RANDOM 85 mg/dL (74-106); MAGNESIUM 1.9 mg/dL (1.8-2.4); SGOT/AST 30 U/L (15-37); SGPT/ALT 33 U/L (12-78); TOT PROT 6.8 g/dl (6.4-8.2)
[2017-02-24 08:13] LABS: BASOPHIL 0.5 % (0-2.0); EOSINOPHIL 0.4 % (0-4.5); MCHC 33.7 g/dl (32.0-35.9); MEAN CELL VOLUME 80.1 fl (80-96); NEUTROPHILS 69.8 % (42.8-82.8); PLATELET COUNT 135 K/MM3 (134-434); RDW 12.8 % (11.9-15.9); WHITE BLOOD COUNT 6.2 K/mm3 (4.0-10.0)
[2017-02-24] MEDS ORDERED: LORazepam 0.5 MG TABLET PO ONE (09:06)
[2017-02-24 09:07] LABS: INR 1.37 (0.82-1.09); PROTHROMBIN TIME (PATIENT) 15.5 SEC (9.98-11.88)
[2017-02-24] MEDS ORDERED: PANTOPRAZOLE SODIUM 40 MG VIAL IVPUSH ONE (09:11)
[2017-02-24] MEDS ORDERED: POTASSIUM CHLORIDE TABS 20 MEQ TABLET.ER (FP) PO ONE (09:11)
[2017-02-24] MEDS ORDERED: D5-NS + 40 MEQ KCL - 40 MEQ/1,000 ML INFUS.BAG IV SCH ×2 (09:15→16:29)
[2017-02-24] MEDS: CEFTRIAXONE 1 G/50 ML PREMIX 50 ML IVPB SCH (09:16)
--- NOTE | 2017-02-24 09:20 | PN ---
Physical Exam: SUBJECTIVE: Patient seen and examined at bedside. Anxious about surgery today. States has no abdominal pain when NPO. [place] he was getting too much IV fluid last night, and feels better now that rate was lowered. OBJECTIVE: Vital Signs Period Temp Pulse Resp BP Sys/Sky Pulse Ox Last 24 Hr 97.9 F-100.8 F 79-90 18-20 113-151/66-78 96 GENERAL: The patient is awake, alert, and fully oriented, in no acute distress. LUNGS: Breath sounds equal, clear to auscultation bilaterally, no wheezes, no crackles, no accessory muscle use. HEART: Regular rate and rhythm, S1, S2 without murmur, rub or gallop. ABDOMEN: Soft, nontender, nondistended, normoactive bowel sounds, no guarding, no rebound EXTREMITIES: 2+ pulses, warm, well-perfused, no edema. NEUROLOGICAL: Cranial nerves II through XII grossly intact. Normal speech, steady gait. Laboratory Results - last 24 hr 02/23/17 02/24/17 02/24/17 06:45 06:20 06:20 WBC 6.2 D RBC 4.84 Hgb 13.1 Hct 38.8 MCV 80.1 MCH 27.0 MCHC 33.7 RDW 12.8 Plt Count 135 MPV 10.0 Neutrophils % 69.8 D Lymphocytes % 19.0 D Monocytes % 10.3 H D Eosinophils % 0.4 D Basophils % 0.5 Manual Slide Review No Result Required. PT with INR INR Sodium 139 Potassium 3.1 L Chloride 103 Carbon Dioxide 26 Anion Gap 10 BUN 6 L Creatinine 0.7 Creat Clearance w eGFR > 60 Random Glucose 85 Calcium 8.1 L Magnesium 1.9 Total Bilirubin 0.4 D AST 30 D ALT 33 D Alkaline Phosphatase 87 Total Protein 6.8 Albumin 3.6 Blood Type Antibody Screen 02/24/17 02/24/17 08:15 08:15 WBC RBC Hgb Hct MCV MCH MCHC RDW Plt Count MPV Neutrophils % Lymphocytes % Monocytes % Eosinophils % Basophils % Manual Slide Review PT with INR 15.50 H INR 1.37 H Sodium Potassium Chloride Carbon Dioxide Anion Gap BUN Creatinine Creat Clearance w eGFR Random Glucose Calcium Magnesium Total Bilirubin AST ALT Alkaline Phosphatase Total Protein Albumin Blood Type A POSITIVE Antibody Screen Negative Active Medications Generic Name Dose Route Start Last Admin Trade Name Freq PRN Reason Stop Dose Admin Acetaminophen 650 mg 02/22/17 20:11 02/23/17 14:19 Tylenol - PO 650 mg Q6H PRN Administration FEVER OR PAIN Heparin Sodium (Porcine) 5,000 unit 02/21/17 09:45 02/24/17 05:50 Heparin - SQ Not Given TID NUNU Metronidazole 500 mg in 100 mls @ 100 mls/hr 02/21/17 08:00 02/24/17 01:09 Flagyl 500mg Premixed Ivpb - IVPB 100 mls/hr Q8H-IV NUNU Administration CEFTRIAXONE 1 G/50 ML PREMIX 50 mls @ 100 mls/hr 02/22/17 10:00 02/24/17 09: 16 Ceftriaxone 1 Gm-D5w Bag IVPB 100 mls/hr DAILY NUNU Administration Dextrose/Sodium Chloride 40 meq in 1,000 mls @ 42 mls/hr 02/24/17 09:15 Dextrose 5%-Normal Saline+40 Meq Kcl - IV ASDIR NUNU ASSESSMENT/PLAN 32 year-old male with no significant PMH admitted for acute cholecystitis. Acute cholecystitis Cholelithiasis --surgery with Dr. Cowan scheduled at noon today --continue empiric ceftriaxone and metronidazole Hypokalemia --replete with PO and IV fluids --protonix IVP for GI protection FEN Fluids: D5NS+40K @ 42mL/hr Electrolytes: replete as indicated Nutrition: NPO DVT prophylaxis: hold subq heparin; SCDs, oob, ambulation Dispo: continues to require inpatient care. Full code. Visit type - Emergency Visit Emergency Visit: Yes ED Registration Date: 02/21/17 Care time: The patient presented to the Emergency Department on the above date and was hospitalized for further evaluation of their emergent condition. - New Patient This patient is new to me today: No - Critical Care Critical Care patient: No
[2017-02-24] MEDS ORDERED: BUPIVACAINE HCL/PF 0.5% (5MG/ML) 10 ML VIAL ONE (11:30)
[2017-02-24] MEDS ORDERED: MIDAZOLAM HCL 2 MG/2 ML SINGLE DOSE VIAL ONE (11:42)
[2017-02-24] MEDS ORDERED: PROPOFOL 20 ML ONE ×3 (11:44→12:48)
[2017-02-24] MEDS ORDERED: LIDOCAINE HCL 2% JELLY (5 ML/TUBE) ONE (12:04)
[2017-02-24] MEDS ORDERED: DEXAMETHASONE SOD PHOSPHATE 4 MG/1 ML VIAL ONE (12:04)
[2017-02-24] MEDS ORDERED: LIDOCAINE HCL/PF 2% SDV 5ML VIAL ONE (12:04)
[2017-02-24] MEDS ORDERED: KETOROLAC TROMETHAMINE 30 MG/1 ML VIAL ONE (12:04)
[2017-02-24] MEDS ORDERED: GLYCOPYRROLATE 0.2 MG/1 ML VIAL ONE (12:04)
[2017-02-24] MEDS ORDERED: NEOSTIGMINE METHYLSULFATE 0.5 MG/ML - 10 ML MDV ONE (12:09)
[2017-02-24] MEDS ORDERED: ONDANSETRON 4 MG/2 ML VIAL IVPUSH PRN (12:32)
[2017-02-24] MEDS ORDERED: LACTATED RINGERS SOLUTION 1,000 ML IV SCH (12:45)
[2017-02-24] MEDS ORDERED: BUPIVACAINE HCL/PF 0.5% (5MG/ML) 10 ML VIAL IJ ONE (12:48)
[2017-02-24] MEDS ORDERED: BENZOIN/ALOE VERA/STORAX/TOLU 58 ML BOTTLE ONE (13:01)
--- NOTE | 2017-02-24 13:32 | OP ---
Operative Note - Note: Operative Date: 02/24/17 Pre-Operative Diagnosis: acute cholecystitis Operation: Laparoscopic Cholecystectomy Findings: hydrops gallbladder Implants: none Post-Operative Diagnosis: Same as Pre-op Surgeon: Danny Cowan [employer] Coating Machine Operator: Edgar Parsons Anesthesia: General, Local (marcaine 0.5%) Specimens Removed: gallbladder Estimated Blood Loss (mls): 5 Drains & Tubes with Location: none Fluid Volume Replaced (mls): 1,200 Operative Report Dictated: Yes
[2017-02-24] MEDS ORDERED: ACETAMINOPHEN 325 MG TABLET (FP) PO PRN (16:32)
[2017-02-24 20:17] LABS: BASOPHIL 0.1 % (0-2.0); MCHC 33.6 g/dl (32.0-35.9); MEAN CELL VOLUME 80.4 fl (80-96); MEAN PLT VOLUME 10.1 fl (7.5-11.1); NEUTROPHILS 91.4 % (42.8-82.8); PLATELET COUNT 136 K/MM3 (134-434); RDW 13.1 % (11.9-15.9); WHITE BLOOD COUNT 7.7 K/mm3 (4.0-10.0)
[2017-02-24 20:40] LABS: ALBUMIN 3.1 g/dl (3.4-5.0); ALK PHOS 75 U/L (45-117); ANION GAP 7 (8-16); BILIRUBIN,TOTAL 0.3 mg/dL (0.2-1.0); CALCIUM 7.7 mg/dL (8.5-10.1); CO2 27 mmol/L (21-32); CREATININE 0.6 mg/dL (0.7-1.3); GLUCOSE,RANDOM 147 mg/dL (74-106); MAGNESIUM 1.8 mg/dL (1.8-2.4); PHOSPHOROUS 3.5 mg/dL (2.5-4.9); SGOT/AST 35 U/L (15-37); SGPT/ALT 33 U/L (12-78); TOT PROT 6.1 g/dl (6.4-8.2)
[2017-02-25] MEDS ORDERED: PT OWN MED DRAWER 7, Y5N ONE (01:32)
[2017-02-25] MEDS: METRONIDAZOLE 500 MG PREMIXED 500 MG/100 ML MG IVPB SCH ×2 (02:01→10:00)
[2017-02-25 06:07] VITALS: BP 105/58; PULSE 77; TEMP 98
--- NOTE | 2017-02-25 07:50 | PN ---
Progress Note, Physician Chief Complaint: abdominal pain History of Present Illness: 32 yo male no dignificnat PMH or PSH presented to the ED complaining of abdominal pain, worse in the mid abdomen, sharp shooting, intermittent, onest around midnight last night, last meal was at 7pm. POD#1 s/p laparoscopic cholecystectomy. complains of muscular abdominal pain. he is afebrile tmax 99.1 , ambulating, voiding, passing flatus - Current Medication List Current Medications: Active Medications Acetaminophen (Tylenol -) 650 mg PO Q6H PRN PRN Reason: FEVER OR PAIN CEFTRIAXONE 1 G/50 ML PREMIX (Ceftriaxone 1 Gm-D5w Bag) 50 mls @ 100 mls/hr IVPB DAILY NUNU Dextrose/Sodium Chloride (Dextrose 5%-Normal Saline+40 Meq Kcl -) 40 meq in 1, 000 mls @ 42 mls/hr IV ASDIR NUNU Last Admin: 02/24/17 17:22 Dose: 42 mls/hr Metronidazole (Flagyl 500mg Premixed Ivpb -) 500 mg in 100 mls @ 100 mls/hr IVPB Q8H-IV NUNU Last Admin: 02/25/17 02:01 Dose: 100 mls/hr - Objective Vital Signs: Vital Signs Temperature 98.0 F 02/25/17 06:00 Pulse Rate 77 02/25/17 06:00 Respiratory Rate 20 02/25/17 06:00 Blood Pressure 105/58 02/25/17 06:00 O2 Sat by Pulse Oximetry (%) 98 02/24/17 22:00 Vital Signs Period Temp Pulse Resp BP Sys/Sky Pulse Ox Last 24 Hr 97.8 F-99.1 F 71-92 13-20 105-126/50-80 98-100 Constitutional: Yes: Well Nourished, No Distress, Calm Eyes: Yes: Conjunctiva Clear, EOM Intact HENT: Yes: Atraumatic, Normocephalic Neck: Yes: Supple Cardiovascular: Yes: Regular Rate and Rhythm, S1, S2 Respiratory: Yes: Regular, CTA Bilaterally Gastrointestinal: Yes: Normal Bowel Sounds, Soft, Tenderness (rosy-incisional), Other (incisons X4) Genitourinary: Yes: CVA Tenderness - Left, CVA Tenderness - Right Edema: No Peripheral Pulses WNL: Yes Wound/Incision: Yes: Clean/Dry, Dressing Dry and Intact. No: Dressing Removed Neurological: Yes: Alert, Oriented Psychiatric: Yes: Alert, Oriented Labs: CBC, BMP 02/24/17 19:52 02/24/17 19:52 INR, PTT INR 1.37 (0.82-1.09) H 02/24/17 08:15 Problem List - Problems (1) Cholelithiasis and cholecystitis without obstruction Assessment/Plan: 32 yo male with no significant PMH presented with Acute cholecystitis/ symptomatic cholelithiasis, POD#1 s/p laparosopic cholecystectomy OOB Advance diet to regular as tolerated continue IS D/C if feeling okay f/u in 2 weeks in surgery clinc Code(s): K80.10 - CALCULUS OF GALLBLADDER W CHRONIC CHOLECYST W/O OBSTRUCTION Qualifiers: Cholelithiasis location: gallbladder Cholecystitis acuity: acute Qualified Code(s): K80.00 - Calculus of gallbladder with acute cholecystitis without obstruction (2) Abdominal pain Code(s): R10.9 - UNSPECIFIED ABDOMINAL PAIN Qualifiers: Abdominal location: right upper quadrant Qualified Code(s): R10.11 - Right upper quadrant pain (3) Acute cholecystitis Code(s): K81.0 - ACUTE CHOLECYSTITIS (4) Diarrhea Code(s): R19.7 - DIARRHEA, UNSPECIFIED
--- NOTE | 2017-02-25 09:02 | PN ---
Progress Note (short form) - Note Progress Note: Anesthesia POD#1 S/P LAP Cholecystectomy under [place] VSS,pain is well controlled,no N/V. Food is advanced. April Escalante MD.
--- NOTE | 2017-02-25 09:22 | DS ---
Physical Exam: SUBJECTIVE: Patient seen and examined OBJECTIVE: Vital Signs Period Temp Pulse Resp BP Sys/Sky Pulse Ox Last 24 Hr 97.8 F-99.1 F 71-92 13-20 105-126/50-80 98-100 PHYSICAL EXAM GENERAL: The patient is awake, alert, and fully oriented, in no acute distress. HEAD: Normal with no signs of trauma. EYES: PERRL, extraocular movements intact, sclera anicteric, conjunctiva clear. ENT: Ears normal, nares patent, oropharynx clear without exudates, moist mucous membranes. NECK: Trachea midline, full range of motion, supple. LUNGS: Breath sounds equal, clear to auscultation bilaterally, no wheezes, no crackles, no accessory muscle use. HEART: Regular rate and rhythm, S1, S2 without murmur, rub or gallop. ABDOMEN: Soft, nontender, nondistended, normoactive bowel sounds, no guarding, no rebound, no hepatosplenomegaly, no masses. EXTREMITIES: 2+ pulses, warm, well-perfused, no edema. NEUROLOGICAL: Cranial nerves II through XII grossly intact. Normal speech, gait not observed. PSYCH: Normal mood, normal affect. SKIN: Warm, dry, normal turgor, no rashes or lesions noted. LABS Laboratory Results - last 24 hr 02/24/17 02/24/17 19:52 19:52 WBC 7.7 RBC 4.51 Hgb 12.2 Hct 36.3 MCV 80.4 MCH 27.0 MCHC 33.6 RDW 13.1 Plt Count 136 MPV 10.1 Neutrophils % 91.4 H D Lymphocytes % 6.0 L D Monocytes % 2.5 L Eosinophils % 0.0 D Basophils % 0.1 Sodium 138 Potassium 4.3 D Chloride 104 Carbon Dioxide 27 Anion Gap 7 L BUN 7 Creatinine 0.6 L Creat Clearance w eGFR > 60 Random Glucose 147 H D Calcium 7.7 L Phosphorus 3.5 Magnesium 1.8 Total Bilirubin 0.3 D AST 35 ALT 33 Alkaline Phosphatase 75 Total Protein 6.1 L Albumin 3.1 L HOSPITAL COURSE: Date of Admission:02/21/17 Date of Discharge: 02/25/17 Minutes to complete discharge: 35 Discharge Summary Reason For Visit: ACUTE CHOLECYSTITIS Current Active Problems Abdominal pain (Acute) Acute cholecystitis (Acute) Cholelithiasis and cholecystitis without obstruction (Acute) Condition: Improved - Instructions Diet, Activity, Other Instructions: Postoperative instructions: You had a laparoscopic ectomy on 02/24/[address] Danny Cowan of [facility]. Activity: Resume your usual activities gradually, but no heavy exertion or lifting more than 10-15 pounds for 1 month. Remove dressings 48 hours after surgery; sticky tapes underneath will fall off by themselves. You may shower daily starting then, just pat the incision areas dry. Eat lightly at first, but advance to your usual diet as tolerated. Pain: For pain, you may use and alternate Tylenol (acetaminophen) and/or ibuprofen every 6 hours each as needed; this means that you can take one OR the other at 3-hour intervals. If you are prescribed a Tylenol/narcotic combination for severe pain, use it instead of plain Tylenol as needed and switch back when your pain starts decreasing. Do not take more than 4000mg of acetaminophen in a day. Take medications as prescribed or indicated on the labeling. Follow-up: Call Dr. Cowan' office at [phone] to make your postop appointment (Thursday ~2 weeks after surgery). Clinic is held in the [facility] on the first floor of [facility]. Call the office if you have: * increasing pain not responsive to pain medication * fever of 101F or higher * vomiting * unusual or increasing bleeding or drainage from wounds * increasing redness or swelling at wound sites * inability to urinate Also, see your primary medical doctor within 1-2 weeks. Referrals: Danny Cowan MD [Staff Physician] - 2 Weeks Disposition: HOME - Home Medications Comprehensive Discharge Medication List: Ambulatory Orders Mag Hydrox/Al Hydrox/Simeth [Mylanta *Suspension*] 30 ml PO ONCE 02/20/17
--- NOTE | 2017-02-25 09:43 | OP ---
DATE OF OPERATION: 02/24/2017 PREOPERATIVE DIAGNOSIS: Acute cholecystitis. POSTOPERATIVE DIAGNOSIS: Acute cholecystitis, hydrops gallbladder. ATTENDING SURGEON: Danny Cowan MD DUST COLLECTOR: Edgar Parsons MD ANESTHESIA: Norma Brewster MD, general with local 0.5% Marcaine a total of 10 mL given at the port site. ESTIMATED BLOOD LOSS: 5. IV FLUID: 1200. DRAINS: None. SPECIMEN: Gallbladder to Pathology. It was a hydrops gallbladder, white bile. INDICATIONS: The patient is a 32-year-old male presenting with right upper quadrant pain, acute cholecystitis on February 20, 2017. He was counseled regarding the need for cholecystectomy, however, wished to treat nonoperatively. He was admitted to the hospital and started on IV antibiotics. Signed the refusal for surgery at which point after a few days of career counselor from his sister, who is an OR nurse, his medical team consented for laparoscopic cholecystectomy after his leukocytosis failed to resolve, his pain failed to resolve, and he was unable to eat without discomfort. He was explained the risks, benefits, and alternatives to surgical plan with his laparoscopic cholecystectomy, possible open. He signed informed consent after he had his questions answered to his satisfaction. He was then taken for the procedure. DESCRIPTION OF PROCEDURE: The patient was brought to the operating room. He was placed in supine position on the operating room table with the right arm tucked and the left arm 90 degrees perpendicular to the body's axis. The anterior abdominal wall was prepped and draped in standard sterile fashion after the patient was endotracheally intubated and general anesthesia was induced. He was already receiving IV antibiotics and was not due for a dose. He had SCDs bilateral lower extremities. After formal time-out, we proceeded with surgical markings at the umbilical site, the xiphisternum, and in the right abdomen along the costal margin 2 fingerbreadths below. At the umbilicus, he was incised with a 15-blade scalpel deep and wide through subcutaneous tissue with Bovie cautery until the median fascia of the rectus abdominal muscles. He had this fascia elevated with Kochers, and blunt entry into the abdominal wall was made. A finger was inserted to ensure that there were no anterior adhesions at the umbilicus. It was cleared at which point a Bogres trocar size 12 mm was introduced into the abdomen, and the balloon was inflated. A pneumoperitoneum was then established to 15 mmHg allowing for inspection of the abdominal wall. There appeared to be some adhesions to what appeared to be a distended and edematous gallbladder. At this time, decision to make the xiphisternum entry under direct visualization was made, and a 5-mm trocar was introduced to the abdomen after a 15 blade was used to open the skin. With this introduced, we turned out attention to the right abdomen to gain access for the retracted port. Two additional 5-mm ports were introduced into the abdomen under direct visualization in standard fashion without incident. The dome of the gallbladder was then retracted caudally revealing the infundibulum, which had some omental adhesions, which were taken down bluntly. With the gallbladder then retracted, we were able to dissect what appeared to be a large and bulbous infundibulum down to the cystic duct structure, which appeared with somewhat adherent peritoneal and omental attachments. The gallbladder itself appeared edematous. Once the cystic duct had been identified, it was cleared, and a window was created between the cystic duct and cystic artery. The cystic artery was the cleared as well, and a critical view was identified. With the critical view identified, decisions to take down the structures with Weck clips were made. The 5-mm Weck clips were introduced into the abdomen, two proximal and one distal, on both the cystic duct and cystic artery were placed, and both structures were then transected with an Endo Shear. Once completed, the gallbladder was freely mobile. Pulsations were noted in the cystic artery confirming the identity of the structure. Lumens were noted on both clipped structures confirming their identify. There was minimal bleeding. Spatula and L-hook were used to take down the gallbladder off of the liver plate. This dissection was carried from the cystic structures distally towards the dome of the gallbladder. When the gallbladder was almost completely removed from the liver plate, a small entry was made into the gallbladder stone inadvertently causing white bile to spill into the field in the area where the gallbladder wall itself was thinned, and the plane could not be easily discerned. With this, the area was quickly controlled with grasper readjustment, and the gallbladder was removed from the liver plate. A small amount of serous fluid, white bile, and bloody effluent was suctioned from the abdominal cavity. The gallbladder was retrieved from the umbilicus after residing the camera to the xiphisternum with an EndoCatch bag at the umbilicus. The site was then reinspected to ensure hemostasis. There was no spillage of stones, only a small amount of white bile, which was suctioned clear. The site was then irrigated with 1/2 L of sterile saline irrigant. The patient was returned to normal position, and a small amount of omentum was installed into the plane of dissection. At this point, the trocars were removed under direct visualization. There appeared to be no other intra-abdominal pathology identified. The counts were correct. All trocars were removed from the abdomen without incident. The camera was also removed and the pneumoperitoneum relieved. The patient remained stable throughout the procedure. The fascia was closed with a 1-0 Vicryl at the umbilicus approximating a figure of eight drawing the edges together and ablating the space. The sites were irrigated, and then the skin was closed with subcuticular 4-0 Vicryl in running subcuticular fashion. The skin was cleaned. Sterile dressings were placed including benzoin, Steri-Strips, gauze, and Tegaderms. The patient was then awoken from general anesthesia having tolerated the procedure well. He was returned to the recovery room in stable condition having been extubated in the OR. MD ANSHU [id number] MTDD
[2017-02-25] MEDS ORDERED: CEFTRIAXONE 1 G/50 ML PREMIX 50 ML IVPB SCH (10:00)
--- NOTE | 2017-02-27 09:59 | PATH ---
Surgical Pathology Report Patient Name: KRISTI ROSENTHAL [facility]. Rec. #: [id number] /Age/Gender: 1985 (Age: 32) / M Account: [id number] Location: [address] [place] [address]/[facility] Taken: 02/24/2017 Received: 02/25/2017 Reported: 02/27/2017 Physicians: Danny Cowan M.D. Specimen(s) Received GALLBLADDER Clinical History Preoperative diagnosis: Acute cholecystitis Final Diagnosis GALLBLADDER, CHOLECYSTECTOMY: ACUTE, CHRONIC, AND NECROTIZING CHOLECYSTITIS AND CHOLELITHIASIS. Electronically Signed Florian Rueda M.D. Gross Description Received in formalin, labeled "gallbladder," is a 9.0 x 2.2 x 2.1 cm. gallbladder with a 0.2 cm. in length portion of cystic duct attached. The outer surface is hadley-harrison and varies from smooth to shaggy. The lumen contains hadley, mucinous bile as well as 2 yellow, ovoid choleliths averaging 1.5 cm greatest dimension. The mucosa is hadley and focally eroded. The wall of the gallbladder ranges from 0.1-0.4 cm. in thickness. Daycare Worker sections are submitted in one cassette. 02/25/201702/25/2017
== END 2017-02-25 15:00 | disposition home or self-care (01) | DRG 418 ==
LOC: JER 20:56 → JERBED 02-21 00:50 → J6S 02-21 02:48 → OBSVTOIN 02-21 08:10
PROVIDERS: ADMIT Internal Medicine; ATTEND Nurse Practitioner Acute Care
PROC: 0FT44ZZ Resection of Gallbladder, Percutaneous Endoscopic Approach (ICD-10-PCS; principal; 2017-02-24 12:00)
DX: K80.00 Calculus of gallbladder with acute cholecystitis without obstruction (principal); K82.1 Hydrops of gallbladder; D72.829 Elevated white blood cell count, unspecified; R19.7 Diarrhea, unspecified; E87.6 Hypokalemia
CPT/HCPCS: 36415; 76705-TC; 80053; 81003; 83690; 83735; 84100; 85025; 85027; 85610; 86850; 86900; 86901; 88304-TC; 94010; 94760; 99283-25; G0378